=== PATIENT | female | born 1980 | race Caucasian/White ===

== ENCOUNTER 2019-01-20 09:06 | Emergency (ER) | payer OTHER ==
[~2019-01-20] VITALS: Ht 167.6 cm; Wt 79.4 kg
--- OUTSIDE RECORDS SUMMARY | 2019-01-20 09:12 | XMS REPORT ---
Author Author Migration, Doctor Organization [facility] Address Unknown Phone Unavailable Care Team Providers Care Water Resource Agent Name Role Phone Migration, Doctor Unavailable Unavailable PROBLEMS Type Condition ICD9-CM Code CII14-SK Code Onset Dates Condition Status SNOMED Code Problem Generalized anxiety disorder F41.1 14 May, 2012 Active 16161338 Problem Smoking trying to quit Z72.0 14 Oct, 2016 Active 295508909 Problem Hemangioma of liver D18.03 Feb, Active 66761930 Problem Lumbago with sciatica, right side M54.41 Active 630611488929554 Problem Other chronic pain G89.29 Active 35294257 Problem Left carpal tunnel syndrome G56.02 Feb, Active 04202420 Problem Essential hypertension I10 Active 87186513 Problem GERD (gastroesophageal reflux disease) K21.9 Active 436310719 Problem Lumbago with sciatica, left side M54.42 Active 362251701 ALLERGIES No Information ENCOUNTERS Encounter Location Date Diagnosis [address] [place] [address] November, Acute bacterial conjunctivitis of left eye H10.32 [address] [place] [address] November, Other chronic pain G89.29 [address] [place] [address] Oct, Sore throat J02.9 ; Exposure to strep throat Z20.818 and Encounter for immunization Z23 [facility] [address] [address] Oct, [facility] [address] [place] [address] Sep, Lumbago with sciatica, left side M54.42 [facility] [address] [place] [address] Sep, Vaso vagal episode R55 [facility] [address] [address] Sep, [facility] [address] [place] [address] Aug, [facility] [address] [place] [address] Aug, Lumbago with sciatica, left side M54.42 ; Lumbago with sciatica, right side M54.41 and Essential hypertension I10 [facility] [address] [place] [address] Aug, [facility] [address] [place] [address] Aug, Lumbago with sciatica, left side M54.42 and Lumbago with sciatica, right side M54.41 [facility] [address] [address] Jul, [facility] [address] [place] [address] Jul, Essential hypertension I10 [facility] [address] [address] Jul, [facility] [id number] [place] [address] Jul, Essential hypertension I10 [facility] [address] [place] [address] Jul, Liver hemangioma D18.03 ; Other chronic pain G89.29 ; Lumbago with sciatica, right side M54.41 ; Lumbago with sciatica, left side M54.42 and Essential hypertension I10 [facility] [address] [address] Jun, [facility] [id number] [place] [address] Jun, [facility] [address] [address] May, [facility] [address] [place] [address] November, [facility] [address] [address] Oct, Essential hypertension I10 [facility] [address] [address] 10 Jul, 2016 Acute cystitis without hematuria N30.00 [facility] [address] [address] 14 Oct, 2014 [facility] [address] [address] Oct, [facility] [id number] [place] [address] Mar, [facility] [id number] [place] [address] Feb, [facility] [id number] [place] [address] Feb, [facility] [address] [address] Feb, [facility] [id number] [place] [address] Feb, [facility] [address] [address] Feb, [facility] [address] [address] Jan, [facility] [address] [address] Dec, IMMUNIZATIONS No Known Immunizations SOCIAL HISTORY Never Assessed REASON FOR VISIT [facility] PLAN OF CARE VITAL SIGNS MEDICATIONS No Known Medications RESULTS No Results PROCEDURES No Known procedures INSTRUCTIONS MEDICATIONS ADMINISTERED No Known Medications MEDICAL (GENERAL) HISTORY Type Description Date Medical History Anxiety Medical History GERD (gastroesophageal reflux disease) Medical History Back pain Medical History Hemangioma Surgical History hysterectomy 2008 Surgical History gallbladder removal 2012 Surgical History tubal ligation Hospitalization History Surgery(s)/Childbirth(s) only
--- OUTSIDE RECORDS SUMMARY | 2019-01-20 09:13 | XMS REPORT ---
Author Author Migration, Doctor Organization [facility] Address Unknown Phone Unavailable Care Team Providers Care Compliance Quality Performance Analyst Name Role Phone Migration, Doctor Unavailable Unavailable PROBLEMS Type Condition ICD9-CM Code CVR90-TR Code Onset Dates Condition Status SNOMED Code Problem Generalized anxiety disorder F41.1 14 May, 2012 Active 91694415 Problem Smoking trying to quit Z72.0 14 Oct, 2016 Active 941921658 Problem Hemangioma of liver D18.03 Feb, Active 29938615 Problem Lumbago with sciatica, right side M54.41 Active 673021929042091 Problem Other chronic pain G89.29 Active 70081381 Problem Left carpal tunnel syndrome G56.02 Feb, Active 14502814 Problem Essential hypertension I10 Active 36404567 Problem GERD (gastroesophageal reflux disease) K21.9 Active 901229341 Problem Lumbago with sciatica, left side M54.42 Active 504663233 ALLERGIES No Information ENCOUNTERS Encounter Location Date Diagnosis [address] [place] [address] Oct, Sore throat J02.9 ; Exposure to strep throat Z20.818 and Encounter for immunization Z23 [facility] [id number] [place] [address] Oct, [facility] [address] [place] [address] Sep, Lumbago with sciatica, left side M54.42 [facility] [address] [place] [address] Sep, Vaso vagal episode R55 [facility] [address] [address] Sep, [facility] [address] [place] [address] Aug, [facility] [address] [place] [address] Aug, Lumbago with sciatica, left side M54.42 ; Lumbago with sciatica, right side M54.41 and Essential hypertension I10 [facility] [id number] [place] [address] Aug, [facility] [address] [place] [address] Aug, Lumbago with sciatica, left side M54.42 and Lumbago with sciatica, right side M54.41 [facility] [id number] [place] [address] Jul, [facility] [address] [place] [address] Jul, Essential hypertension I10 [facility] [id number] [place] [address] Jul, [facility] [id number] [place] [address] Jul, Essential hypertension I10 [facility] [address] [place] [address] Jul, Liver hemangioma D18.03 ; Other chronic pain G89.29 ; Lumbago with sciatica, right side M54.41 ; Lumbago with sciatica, left side M54.42 and Essential hypertension I10 [facility] [address], [place] [address] Jun, [facility] [id number] [place] [address] Jun, [facility] [id number] [place] [address] May, [facility] [id number] [place] [address] November, [facility] [id number] [place] [address] Oct, Essential hypertension I10 [facility] [id number] [place] [address] 10 Jul, 2016 Acute cystitis without hematuria N30.00 [facility] [address], [place] [address] 14 Oct, 2014 [facility] [address], [place] [address] 13 Oct, 2014 [facility] [address], [place] [address] 04 Mar, 2012 [facility] [address] [place] [address] Feb, [facility] [address] [place] [address] Feb, [facility] [address] [place] [address] Feb, [facility] [address] [place] [address] Feb, [facility] [address], [place] [address] Feb, [facility] [address], [place] [address] Jan, [facility] [address], [place] [address] Dec, IMMUNIZATIONS No Known Immunizations SOCIAL HISTORY Never Assessed REASON FOR VISIT [facility] PLAN OF CARE VITAL SIGNS MEDICATIONS No [...]
--- OUTSIDE RECORDS SUMMARY | 2019-01-20 09:13 | XMS REPORT ---
Author Author Migration, Doctor Organization [facility] Address Unknown Phone Unavailable Care Team Providers Care Writer Technical Publications Name Role Phone Migration, Doctor Unavailable Unavailable PROBLEMS Type Condition ICD9-CM Code DQL91-GG Code Onset Dates Condition Status SNOMED Code Problem Generalized anxiety disorder F41.1 14 May, 2012 Active 45730489 Problem Smoking trying to quit Z72.0 14 Oct, 2016 Active 501064663 Problem Hemangioma of liver D18.03 Feb, Active 92232323 Problem Lumbago with sciatica, right side M54.41 Active 105932068679920 Problem Other chronic pain G89.29 Active 49258689 Problem Left carpal tunnel syndrome G56.02 Feb, Active 17807760 Problem Essential hypertension I10 Active 45145688 Problem GERD (gastroesophageal reflux disease) K21.9 Active 302369769 Problem Lumbago with sciatica, left side M54.42 Active 047664466 ALLERGIES No Information ENCOUNTERS Encounter Location Date Diagnosis [facility] [id number] [place] [address] Oct, [facility] [address] [place] [address] Sep, Lumbago with sciatica, left side M54.42 [facility] [address] [place] [address] Sep, Vaso vagal episode R55 [facility] [id number] [place] [address] Sep, [facility] [address] [place] [address] Aug, [facility] [address] [place] [address] Aug, Lumbago with sciatica, left side M54.42 ; Lumbago with sciatica, right side M54.41 and Essential hypertension I10 [facility] [id number] [place] [address] Aug, [facility] [address] [place] [address] Aug, Lumbago with sciatica, left side M54.42 and Lumbago with sciatica, right side M54.41 [facility] [address] [place] [address] Jul, [facility] [address] [place] [address] Jul, Essential hypertension I10 [facility] [id number] [place] [address] Jul, [facility] [id number] [place] [address] Jul, Essential hypertension I10 [facility] [address] [place] [address] Jul, Liver hemangioma D18.03 ; Other chronic pain G89.29 ; Lumbago with sciatica, right side M54.41 ; Lumbago with sciatica, left side M54.42 and Essential hypertension I10 [facility] [id number] [place] [address] Jun, [facility] [id number] [place] [address] Jun, [facility] [id number] [place] [address] May, [facility] [id number] [place] [address] November, [facility] [id number] [place] [address] 27 Oct, 2017 Essential hypertension I10 [facility] [id number] [place] [address] 10 Jul, 2016 Acute cystitis without hematuria N30.00 [facility] [id number] [place] [address] Oct, [facility] [id number], [place] [address] Oct, [facility] [address], [place] [address] Mar, [facility] [id number], [place] [address] Feb, [facility] [address], [place] [address] Feb, [facility] [address], [place] [address] Feb, [facility] [address] [place] [address] Feb, [facility] [address], [place] [address] Feb, [facility] [address], [place] [address] Jan, [facility] [id number], [place] [address] Dec, IMMUNIZATIONS No Known Immunizations SOCIAL HISTORY Never Assessed REASON FOR VISIT [facility] PLAN OF CARE VITAL SIGNS MEDICATIONS Medication Instructions Dosage Frequency Start Date End Date Duration Status Ranitidine HCl 150 mg 1 tablet by Oral route 2 times per day Dec, Active RESULTS No Results PROCEDURES No Known procedures INSTRUCTIONS MEDICATIONS ADMINISTERED No Known Medications MEDICAL (GENERAL) HISTORY Type Description Date Medical History Anxiety Medical History GERD (gastroesophageal reflux disease) Medical History Back pain Medical History Hemangioma Surgical History hysterectomy 2009 Surgical History gallbladder removal 2012 Surgical History tubal ligation Hospitalization History Surgery(s)/Childbirth(s) only
--- OUTSIDE RECORDS SUMMARY | 2019-01-20 09:13 | XMS REPORT | Continuity of Care Document ---
Author Organization Unknown Address Unknown Allergies There is no data. Medications There is no data. Problems There is no data. Procedures There is no data. Results There is no data. Encounters ACCT No. Visit Date/Time Discharge Status Pt. Type Provider Facility Loc./Unit Complaint [id number] 12/04/2018 09:40:00 12/04/2018 23:59:59 CLS Outpatient JORDEN ARIAS
--- OUTSIDE RECORDS SUMMARY | 2019-01-20 09:13 | XMS REPORT ---
Author Author JORDEN ARIAS [facility] Address [address] [place] [address] Care Team Providers Care Meat Butcher Name Role Phone JORDEN ARIAS Unavailable PROBLEMS Type Condition ICD9-CM Code TFS64-FC Code Onset Dates Condition Status SNOMED Code Problem Generalized anxiety disorder F41.1 14 May, 2012 Active 01511052 Problem Smoking trying to quit Z72.0 Oct, Active 196596335 Problem Hemangioma of liver D18.03 Feb, Active 32273198 Problem Lumbago with sciatica, right side M54.41 Active 182583658836077 Problem Other chronic pain G89.29 Active 72975889 Problem Left carpal tunnel syndrome G56.02 Feb, Active 78376615 Problem Essential hypertension I10 Active 25295731 Problem GERD (gastroesophageal reflux disease) K21.9 Active 470439664 Problem Lumbago with sciatica, left side M54.42 Active 919678187 ALLERGIES No Information ENCOUNTERS Encounter Location Date Diagnosis [address] [place] [address] November, Acute bacterial conjunctivitis of left eye H10.32 [address] [place] [address] November, Other chronic pain G89.29 [address] [place] [address] Oct, Sore throat J02.9 ; Exposure to strep throat Z20.818 and Encounter for immunization Z23 [facility] [address] [facility] [id number] [address] Oct, [address] [place] [address] Sep, Lumbago with sciatica, left side M54.42 [address] [place] [address] Sep, Vaso vagal episode R55 [facility] [id number] [place] [address] Sep, [facility] [address] [place] [address] Aug, [facility] [address] [place] [address] Aug, Lumbago with sciatica, left side M54.42 ; Lumbago with sciatica, right side M54.41 and Essential hypertension I10 [facility] [id number] [place] [address] Aug, [facility] [address] [place] [address] Aug, Lumbago with sciatica, left side M54.42 and Lumbago with sciatica, right side M54.41 [facility] [id number] [place] [address] Jul, [facility] [address] [place] [address] Jul, Essential hypertension I10 [facility] [id number] [place] [address] Jul, [facility] [id number] [place] [address] Jul, Essential hypertension I10 [facility] [address] [place] [address] Jul, Liver hemangioma D18.03 ; Other chronic pain G89.29 ; Lumbago with sciatica, right side M54.41 ; Lumbago with sciatica, left side M54.42 and Essential hypertension I10 [facility] [id number] [place] [address] Jun, [facility] [id number] [place] [address] Jun, [facility] [id number] [place] [address] May, [facility] [address], [place] [address] November, [facility] [address], [place] [address] Oct, Essential hypertension I10 [facility] [address], [place] [address] Jul, Acute cystitis without hematuria N30.00 [facility] [address], [place] [address] 14 Oct, 2014 [facility] [address] [place] [address] Oct, [facility] [id number] [place] [address] Mar, [facility] [address] [place] [address] Feb, [facility] [address], [place] [address] Feb, [facility] [id number] [place] [address] Feb, [facility] [address], [place] [address] Feb, [facility] [address], [place] [address] Feb, [facility] [address], [place] [address] Jan, [facility] [address], [place] [address] Dec, IMMUNIZATIONS No Known Immunizations SOCIAL HISTORY Never Assessed REASON FOR VISIT PLAN OF CARE VITAL SIGNS MEDICATIONS Medication Instructions Dosage Frequency Start Date End Date Duration Status Tramadol HCl 50 MG Orally every 8 hours as needed for pain must last one month 1-2 tablets Active RESULTS No Results PROCEDURES No Known procedures INSTRUCTIONS MEDICATIONS ADMINISTERED No Known Medications MEDICAL (GENERAL) HISTORY Type Description Date Medical History Anxiety Medical History GERD (gastroesophageal reflux disease) Medical History Back pain Medical History Hemangioma Surgical History hysterectomy 2008 Surgical History gallbladder removal 2012 Surgical History tubal ligation Hospitalization History Surgery(s)/Childbirth(s) only
--- OUTSIDE RECORDS SUMMARY | 2019-01-20 09:13 | XMS REPORT ---
Author Author HERBER RAMIREZ Organization [facility] Address [address] [place] [address] Phone Unavailable Care Team Providers Care Underground Truck Operator Name Role Phone HERBER RAMIREZ Unavailable Unavailable PROBLEMS Type Condition ICD9-CM Code [id number] Code Onset Dates Condition Status SNOMED Code Problem Essential hypertension I10 Active 30551809 Problem Unspecified viral infection, in conditions classified elsewhere and of unspecified site 079.99 Active 90721723 Problem Acute gastritis without mention of hemorrhage 535.00 Active 97430623 Problem Abdominal pain, right upper quadrant 789.01 Active [id number] ALLERGIES No Known Allergies ENCOUNTERS Encounter Location Date Diagnosis [facility] [id number] [place] [phone] Oct, Essential hypertension I10 [facility] [id number] [place] [phone] 10 Jul, 2016 Acute cystitis without hematuria N30.00 [facility] [id number] [place] [phone] 14 Oct, 2014 [facility] [id number] [place] [phone] Oct, [facility] [id number] [place] [phone] Mar, [facility] [id number] [place] [phone] Feb, [facility] [id number] [place] [phone] Feb, [facility] [id number] [place] [phone] Feb, [facility] [id number] [place] [phone] Feb, [facility] [address] [facility] [id number] [place] [address] Feb, [facility] [address] [facility] [id number] [address] Jan, [facility] [address] [facility] [id number] [place] [address] Dec, IMMUNIZATIONS No Known Immunizations SOCIAL HISTORY Never Assessed REASON FOR VISIT headache/back pain Pt c/o lower back pain and headache since yesterday SERA García PLAN OF CARE Activity Details Follow Up prn Reason: VITAL SIGNS Height 66 in 2017-11-23 Weight 182.4 lbs 2017-11-23 Temperature 98.6 degrees Fahrenheit 2017-11-23 Heart Rate 88 bpm 2017-11-23 Respiratory Rate 18 2017-11-23 BMI 29.44 kg/m2 2017-11-23 Blood pressure systolic 136 mmHg 2017-11-23 Blood pressure diastolic 82 mmHg 2017-11-23 MEDICATIONS Medication Instructions Dosage Frequency Start Date End Date Duration Status Ranitidine HCl 150 mg 1 tablet by Oral route 2 times per day Dec, Not-Taking Prilosec OTC 20 MG Orally Once a day 2 tablets 24h Active Medrol (Micheal) Active RESULTS No Results PROCEDURES No Known procedures INSTRUCTIONS MEDICATIONS ADMINISTERED No Known Medications MEDICAL (GENERAL) HISTORY Type Description Date Surgical History hysterectomy 2008 Surgical History gallbladder removal 2012
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
[2019-01-20] MEDS ORDERED: ONDANSETRON 4 MG/2 ML (SDV) Z0FRAN IVP ONE (09:30)
[2019-01-20] MEDS ORDERED: NITROGLYCERIN 0.4 MG SL TABS BTL 25'S SL PRN (09:30)
[2019-01-20] MEDS ORDERED: ASPIRIN 81 MG CHEW (CHILDREN'S ASA) PO ONE (09:30)
[2019-01-20 09:33] LABS: BASOPHILS % (AUTO) 1 % (0-10); EOSINOPHILS # (AUTO) 0.1 10^3/uL (0.0-0.3); EOSINOPHILS % (AUTO) 2 % (0-10); HEMATOCRIT 42 % (35-52); HEMOGLOBIN 13.6 G/DL (11.5-16.0); LYMPHOCYTES # (AUTO) 2.2 X 10^3 (1.0-4.0); LYMPHOCYTES % (AUTO) 25 % (12-44); MEAN CORPUSCULAR HEMOGLOBIN 31 PG (25-34); MEAN CORPUSCULAR HGB CONC 33 G/DL (32-36); MEAN CORPUSCULAR VOLUME 94 FL (80-99); MEAN PLATELET VOLUME 10.3 FL (7.4-10.4); MONOCYTES # (AUTO) 0.5 X 10^3 (0.0-1.0); MONOCYTES % (AUTO) 6 % (0-12); NEUTROPHILS # (AUTO) 5.9 X 10^3 (1.8-7.8); NEUTROPHILS % (AUTO) 68 % (42-75); PLATELET COUNT 333 10^3/uL (130-400); RED CELL DISTRIBUTION WIDTH 14.5 % (10.0-14.5); WHITE BLOOD COUNT 8.8 10^3/uL (4.3-11.0)
[2019-01-20] MEDS ORDERED: LORazepam INJ 2 MG/ML (ATIVAN) VIAL IVP ONE (09:45)
[2019-01-20 09:51] LABS: INR 0.8 (0.8-1.4); PROTHROMBIN TIME PATIENT 11.7 SEC (12.2-14.7)
[2019-01-20 09:52] LABS: ALANINE AMINOTRANSFERASE 10 U/L (0-55); ALBUMIN 4.2 GM/DL (3.2-4.5); ALKALINE PHOSPHATASE 74 U/L (40-136); BILIRUBIN,TOTAL 0.2 MG/DL (0.1-1.0); BUN/CREATININE RATIO 14; CALCIUM 9.3 MG/DL (8.5-10.1); CARBON DIOXIDE 20 MMOL/L (21-32); CHLORIDE 108 MMOL/L (98-107); CREATININE SERUM 0.71 MG/DL (0.60-1.30); GFR ESTIMATED > 60; GLUCOSE 103 MG/DL (70-105); LIPASE 33 U/L (8-78); POTASSIUM 4.1 MMOL/L (3.6-5.0); SODIUM 139 MMOL/L (135-145); TOTAL PROTEIN 6.9 GM/DL (6.4-8.2)
--- NOTE | 2019-01-20 09:52 | Diagnostic Imaging Report ---
INDICATION: Chest pain. Time of exam 9:38 a.m. COMPARISON: No prior studies are available for comparison. FINDINGS: Heart size is normal. The lungs are clear. No infiltrates are seen. There is no effusion or pneumothorax. Healed left sixth posterior rib fracture is noted. IMPRESSION: No acute abnormality is detected. Dictated by: Dictated on workstation # [id number]
[2019-01-20] MEDS ORDERED: KETOROLAC 30 MG/ML VIAL IVP ONE (11:00)
[2019-01-20 11:35] LABS: BILIRUBIN,URINE NEGATIVE (NEGATIVE); CLARITY,URINE CLEAR; COLOR,URINE YELLOW; GLUCOSE, URINE (UA) NEGATIVE (NEGATIVE); KETONES,URINE NEGATIVE (NEGATIVE); LEUKOCYTE ESTERASE ,URINE 1+ (NEGATIVE); NITRITE,URINE POSITIVE (NEGATIVE); PH,URINE 6 (5-9); PROTEIN,URINE NEGATIVE (NEGATIVE); UROBILINOGEN,URINE NORMAL (NORMAL)
[2019-01-20 11:36] LABS: BACTERIA,URINE MODERATE /HPF
[2019-01-20] MEDS ORDERED: NAPR-1071 PO (11:54)
[2019-01-20 11:59] VITALS: BP 111/89
== END 2019-01-20 11:59 | disposition home or self-care (01) ==
LOC: EDUNIT# 09:06 → ER 09:08
DX: R07.89 Other chest pain (principal); F41.0 Panic disorder [episodic paroxysmal anxiety]; E78.00 Pure hypercholesterolemia, unspecified; Z88.1 Allergy status to other antibiotic agents
CPT/HCPCS: 36415; 71045; 80053; 81000; 83690; 83735; 83874; 84484; 85025; 85610; 85730; 87077; 87088

== ENCOUNTER → 2019-08-04 | Outpatient (CLI) | payer OTHER ==
[~2019-08-04] MED LIST: NAPR-1071 PO
== END | disposition home or self-care (01) ==
LOC: PREOP 05:38
PROVIDERS: ATTEND Surgery
DX: Z01.818 Encounter for other preprocedural examination (principal)

== ENCOUNTER 2021-02-10 11:28 | Emergency (ER) | payer BC ==
[~2021-02-10] VITALS: Ht 170 cm; Wt 76.0 kg
[2021-02-10 12:21] VITALS: BP_SYST 102; BP_SYST 105; BP_SYST 107; BP_DIAS 54; BP_DIAS 64; BP_DIAS 68
--- NOTE | 2021-02-10 12:34 | ED Cardiac General ---
History of Present Illness General Chief Complaint: Cardiac/General Problems Stated Complaint: HIGH BP Nursing Triage Note: ARRIVED VIA AMB TO ROOM 10 WITHOUT DIFFICULTY. STATES AT TIME HER BP IS HIGH AND AT TIMES IT IS LOW. STATES TODAY SHE FEELS DIZZY AND IS SEEING SPOTS OCCASIONALLY. Source: patient Exam Limitations: no limitations History of Present Illness Date Seen by Provider: Feb 10, 2021 Time Seen by Provider: 12:34 Initial Comments To ER with reports of blood pressure alternating high and low which has been ongoing for many years but only today did she noticed symptoms with it including palpitations and lightheadedness. 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: No ASA po QUARRY EQUIPMENT OPERATOR: No Associated Systoms: Weakness Allergies and Home Medications Allergies Coded Allergies: amoxicillin (Verified Allergy, Unknown, hives, 01/20/19) Home Medications Pantoprazole Sodium 40 Mg Tablet.dr, 40 MG PO DAILY Prescribed by: GONZALO NORWOOD on 08/08/19831 Sucralfate 1 Gm Tablet, 1 GM PO QID Prescribed by: GONZALO NORWOOD on 08/08/19831 Patient Home Medication List Home Medication List Reviewed: Yes Review of Systems Review of Systems Constitutional: see HPI EENTM: No Symptoms Reported Respiratory: No Symptoms Reported Cardiovascular: See HPI; Denies Chest Pain; Irregular Heart Rate, Lig htheadedness, Palpitations Gastrointestinal: No Symptoms Reported Genitourinary: No Symptoms Reported Musculoskeletal: no symptoms reported Skin: no symptoms reported Endocrine: No Symptoms Reported Hematologic/Lymphatic: No Symptoms Reported Past Emxmznq-Usydwp-Uvpzbu Hx Patient Social History Tobacco type used: Cigarettes Smoking Status: Current Everyday Smoker Substance use?: No Alcohol Use?: No Immunizations Up To Date Tetanus Booster (TDap): Unknown Second COVID19 Vaccination Jorge: UNKNOWN DATE Seasonal Allergies Seasonal Allergies: No Past Medical History Surgeries: Yes Gallbladder, Hysterectomy, Tubal Ligation Respiratory: No Currently Using CPAP: No Currently Using BIPAP: No Cardiac: Yes High Cholesterol, Hypertension Neurological: No Female Reproductive Disorders: Denies 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 oz. 79.067778nf; 26.00 BMI Method:Stated General Appearance: No Apparent Distress, WD/WN, Other (Well-appearing alert and oriented no distress) HEENT: PERRL/EOMI, TMs Normal Respiratory: Lungs Clear, Normal Breath Sounds, No Accessory Muscle Use, No Respiratory Distress Cardiovascular: Regular Rate, Rhythm, Normal Peripheral Pulses Gastrointestinal: No Pulsatile Mass, Non Tender, Soft Neurologic/Psychiatric: Alert, Oriented x3 Skin: Normal Color, Warm/Dry Progress/Results/Core Measures Results/Orders Lab Results Laboratory Tests Test 02/10/21 12:25 Range/Units White Blood Count 13.8 H 4.3-11.0 10^3/uL Red Blood Count 4.16 3.80-5.11 10^6/uL Hemoglobin 10.8 L 11.5-16.0 g/dL Hematocrit 35 35-52 % Mean Corpuscular Volume 85 80-99 fL Mean Corpuscular Hemoglobin 26 25-34 pg Mean Corpuscular Hemoglobin Concent 31 L 32-36 g/dL Red Cell Distribution Width 21.0 H 10.0-14.5 % Platelet Count 374 130-400 10^3/uL Mean Platelet Volume 10.3 9.0-12.2 fL Immature Granulocyte % (Auto) 0 % Neutrophils (%) (Auto) 82 H 42-75 % Lymphocytes (%) (Auto) 13 12-44 % Monocytes (%) (Auto) 3 0-12 % Eosinophils (%) (Auto) 1 0-10 % Basophils (%) (Auto) 1 0-10 % Neutrophils # (Auto) 11.3 H 1.8-7.8 10^3/uL Lymphocytes # (Auto) 1.8 1.0-4.0 10^3/uL Monocytes # (Auto) 0.5 0.0-1.0 10^3/uL Eosinophils # (Auto) 0.1 0.0-0.3 10^3/uL Basophils # (Auto) 0.1 0.0-0.1 10^3/uL Immature Granulocyte # (Auto) 0.1 0.0-0.1 10^3/uL Prothrombin Time 12.4 12.2-14.7 SEC INR Comment 0.9 0.8-1.4 Activated Partial Thromboplast Time 27 24-35 SEC Sodium Level 141 135-145 MMOL/L Potassium Level 3.8 3.6-5.0 MMOL/L Chloride Level 111 H 98-107 MMOL/L Carbon Dioxide Level 21 21-32 MMOL/L Anion Gap 9 5-14 MMOL/L Blood Urea Nitrogen 10 7-18 MG/DL Creatinine 0.72 0.60-1.30 MG/DL Estimat Glomerular Filtration Rate > 60 BUN/Creatinine Ratio 14 Glucose Level 127 H 70-105 MG/DL Calcium Level 8.5 8.5-10.1 MG/DL Corrected Calcium 8.7 8.5-10.1 MG/DL Magnesium Level 2.0 1.6-2.4 MG/DL Total Bilirubin 0.1 0.1-1.0 MG/DL Aspartate Amino Transf (AST/SGOT) 13 5-34 U/L Alanine Aminotransferase (ALT/SGPT) 12 0-55 U/L Alkaline Phosphatase 81 40-136 U/L Myoglobin 22.7 10.0-92.0 NG/ML Troponin I < 0.028 <0.028 NG/ML Total Protein 6.2 L 6.4-8.2 GM/DL Albumin 3.7 3.2-4.5 GM/DL Thyroid Stimulating Hormone (TSH) 0.66 0.35-4.94 UIU/ML Free Thyroxine 0.67 L 0.70-1.48 NG/DL My Orders Orders - LAKISHA COSTA APRN Cbc With Automated Diff (02/10/21 12:29) Magnesium (02/10/21 12:29) Chest 1 View, Ap/Pa Only (02/10/21 12:29) Ekg Tracing (02/10/21 12:29) Comprehensive Metabolic Panel (02/10/21 12:29) Myoglobin Serum (02/10/21 12:29) Protime With Inr (02/10/21 12:29) Partial Thromboplastin Time (02/10/21 12:29) O2 (7/15/21 12:29) Monitor-Rhythm Ecg Trace Only (02/10/21 12:29) Lipid Panel (02/11/21 06:00) Ed Iv/Invasive Line Start (02/10/21 12:29) Troponin I (02/10/21 12:29) Thyroid Stimulating Hormone (02/10/21 12:29) Free T4 (Free Thyroxine) (02/10/21 12:29) Vital Signs/I&O 02/10/21 02/10/21 11:55 12:21 Temp 36.0 Pulse 85 84 84 81 Resp 16 B/P (MAP) 104/56 (72) 102/54 (70) 105/68 (80) 107/64 (78) Pulse Ox 98 O2 Delivery Room Air Blood Pressure Mean: 70 Departure Communication (Admissions) EKG done at 1252 shows normal sinus rhythm with no ST segment changes no ectopy normal intervals. I have set up for her to wear a 48-hour Holter monitor with results to be faxed to Ange Arias. Impression Primary Impression: Palpitations Disposition: 01 HOME, SELF-CARE Condition: Stable Departure-Patient Inst. Referrals: [facility] (PCP) Primary Care Physician JORDEN ARIAS (Family) Primary Care Physician Patient Instructions: Palpitations LAKISHA CSOTA APRN Feb 10, 2021 12:34
[2021-02-10 12:47] LABS: BASOPHILS # (AUTO) 0.1 10^3/uL (0.0-0.1); BASOPHILS % (AUTO) 1 % (0-10); EOSINOPHILS # (AUTO) 0.1 10^3/uL (0.0-0.3); EOSINOPHILS % (AUTO) 1 % (0-10); HEMATOCRIT 35 % (35-52); HEMOGLOBIN 10.8 g/dL (11.5-16.0); LYMPHOCYTES # (AUTO) 1.8 10^3/uL (1.0-4.0); LYMPHOCYTES % (AUTO) 13 % (12-44); MEAN CORPUSCULAR HEMOGLOBIN 26 pg (25-34); MEAN CORPUSCULAR HGB CONC 31 g/dL (32-36); MEAN CORPUSCULAR VOLUME 85 fL (80-99); MEAN PLATELET VOLUME 10.3 fL (9.0-12.2); MONOCYTES # (AUTO) 0.5 10^3/uL (0.0-1.0); MONOCYTES % (AUTO) 3 % (0-12); NEUTROPHILS # (AUTO) 11.3 10^3/uL (1.8-7.8); NEUTROPHILS % (AUTO) 82 % (42-75); PLATELET COUNT 374 10^3/uL (130-400); WHITE BLOOD COUNT 13.8 10^3/uL (4.3-11.0)
[2021-02-10 12:50] LABS: INR 0.9 (0.8-1.4); PROTHROMBIN TIME PATIENT 12.4 SEC (12.2-14.7)
[2021-02-10 12:51] LABS: ALBUMIN 3.7 GM/DL (3.2-4.5)
[2021-02-10 12:52] LABS: CHLORIDE 111 MMOL/L (98-107); POTASSIUM 3.8 MMOL/L (3.6-5.0); SODIUM 141 MMOL/L (135-145)
[2021-02-10 12:53] LABS: CALCIUM 8.5 MG/DL (8.5-10.1)
[2021-02-10 12:54] LABS: GLUCOSE 127 MG/DL (70-105); TOTAL PROTEIN 6.2 GM/DL (6.4-8.2)
[2021-02-10 12:55] LABS: CARBON DIOXIDE 21 MMOL/L (21-32)
[2021-02-10 12:56] LABS: BILIRUBIN,TOTAL 0.1 MG/DL (0.1-1.0)
[2021-02-10 12:57] LABS: ALKALINE PHOSPHATASE 81 U/L (40-136)
[2021-02-10 12:58] LABS: CREATININE SERUM 0.72 MG/DL (0.60-1.30); GFR ESTIMATED > 60
[2021-02-10 12:59] LABS: BUN/CREATININE RATIO 14
[2021-02-10 13:01] LABS: ALANINE AMINOTRANSFERASE 12 U/L (0-55)
--- NOTE | 2021-02-10 13:11 | Diagnostic Imaging Report ---
EXAM: CHEST 1 VIEW, AP/PA ONLY INDICATION: Chest pain. COMPARISON: Chest radiograph from 01/20/2019. FINDINGS: Normal heart size and central pulmonary vascularity. No focal pulmonary opacity. No pleural effusion or pneumothorax. Chronic left rib fracture is stable. No acute osseous findings. IMPRESSION: No acute cardiopulmonary findings. Dictated by: Dictated on workstation # [id number]
[2021-02-10 13:22] LABS: FREE T4 (FREE THYROXINE) 0.67 NG/DL (0.70-1.48)
[2021-02-10 13:59] VITALS: BP 110/67
== END 2021-02-10 13:59 | disposition home or self-care (01) ==
LOC: EDUNIT# 11:28 → ER 11:29
DX: R00.2 Palpitations (principal); I10 Essential (primary) hypertension; F17.210 Nicotine dependence, cigarettes, uncomplicated
CPT/HCPCS: 36415; 71045; 80053; 83735; 83874; 84439; 84443; 84484; 85025; 85610; 85730; 93005; 93041

== ENCOUNTER → 2021-02-10 | Outpatient (CLI) | payer BC ==
[~2021-02-10] MED LIST changes: +PANT40TA2 PO; +SUCR1TAB36 PO
== END ==
LOC: CARD 15:00
PROVIDERS: ATTEND Nurse Practitioner Family
DX: R00.2 Palpitations (principal); R42 Dizziness and giddiness
CPT/HCPCS: 93225; 93226

== ENCOUNTER 2022-10-08 16:06 | Emergency (ER) | payer BC ==
[~2022-10-08] VITALS: Ht 167 cm; Wt 62.5 kg
--- NOTE | 2022-10-08 16:39 | ED Upper Extremity ---
General Chief Complaint: Upper Extremity Stated Complaint: LEFT UPPER EXTREMITY Nursing Triage Note: pt was bucked off her horse about 2hours ago and landed on left shoulder. pt has pain and obvious deformity to left shoulder. decreased ROM. denies any other complaints Source: patient Exam Limitations: no limitations History of Present Illness Date Seen by Provider: Oct 08, 2022 Time Seen by Provider: 16:29 Initial Comments 42-year-old female presents to the ED with reports of falling off her horse at 2:30 this afternoon. States she landed on her left shoulder, now complaining of left shoulder pain. Denies pain in her elbow, wrist, hand. States she has difficulty extending the elbow due to the shoulder pain, but denies pain in the elbow. Sensation intact distally, cap refill less than 3 seconds. Allergies and Home Medications Allergies Coded Allergies: amoxicillin (Verified Allergy, Unknown, hives, 01/20/19) Patient Home Medication List Home Medication List Reviewed: Yes Oxycodone HCl/Acetaminophen (Percocet 5-325 mg Tablet) 5 Mg-325 Mg Tablet, 1 TAB PO Q4H PRN for PAIN-MODERATE Prescribed by: Hoa Quintero on 10/08/22 1725 Pantoprazole Sodium (Protonix) 40 Mg Tablet.dr, 40 MG PO DAILY Prescribed by: GONZALO NORWOOD on 08/08/19 0832 Sucralfate (Carafate) 1 Gm Tablet, 1 GM PO QID Prescribed by: GONZALO NORWOOD on 08/08/19 0832 Review of Systems Constitutional: no symptoms reported Respiratory: no symptoms reported Cardiovascular: no symptoms reported Musculoskeletal: joint pain Past Esqzkxz-Ztrrvb-Cctzys Hx Patient Social History Tobacco Use?: Yes Tobacco type used: Cigarettes Smoking Status: Current Everyday Smoker Substance use?: No Alcohol Use?: No Immunizations Up To Date Tetanus Booster (TDap): Unknown Influenza Vaccine Up-to-Date: No; Not Current Seasonal Allergies Seasonal Allergies: No Past Medical History Surgeries: Yes Gallbladder, Hysterectomy, Tubal Ligation Respiratory: No Currently Using CPAP: No Currently Using BIPAP: No Cardiac: Yes High Cholesterol, Hypertension Neurological: No Female Reproductive Disorders: Denies [employer] History: Hysterectomy, Tubal Ligation Sexually Transmitted Disease: No HIV/AIDS: No Genitourinary: No Gastrointestinal: No (hemangioma on liver) Chronic Back Pain Endocrine: No HEENT: No Cancer: No Psychosocial: Yes Anxiety Integumentary: No Blood Disorders: No Adverse Reaction/Blood Tranf: No Physical Exam Vital Signs Vital Signs - First Documented 10/08/22 10/08/22 16:20 17:45 Temp 36.5 Pulse 94 Resp 18 B/P (MAP) 130/83 (99) Pulse Ox 100 O2 Delivery Room Air Capillary Refill : Less Than 3 Seconds Height, Weight, BMI Height: 5'6.00" Weight: 175lbs. oz. 79.637201vh; 22.00 BMI Method:Stated General Appearance: WD/WN, mild distress Neck: supple, normal inspection Cardiovascular: regular rate, rhythm, no edema, no gallop, no JVD, no murmur Respiratory: lungs clear, normal breath sounds, no respiratory distress, no accessory muscle use Shoulder: deformity, limited ROM, pain, soft tissue tenderness Elbow/Forearm: normal inspection, non-tender, no evidence of injury, Left Wrist: Yes normal inspection, Yes non-tender, Yes no evidence of injury, Yes normal ROM Hand: normal inspection, non-tender, no evidence of injury, normal ROM, Left Neurologic/Psychiatric: alert, normal mood/affect Skin: normal color, warm/dry Progress/Results/Core Measures Results/Orders My Orders Orders - HOA QUINTERO APRN Shoulder, Left, 3 Views (10/08/22 16:35) Oxycodone/Acet 10/325mg Tablet (Percocet (10/08/22 17:15) Rx-Oxycodone/Apap 5-325 Mg (Rx-Percocet (10/08/22 17:30) Medications Given in ED Current Medications Medications Dose Ordered Sig/Deanne Route Start Time Stop Time Status Last Admin Dose Admin Oxycodone/ Acetaminophen 1 ea Q4H PRN PO 10/08/22 17:30 10/08/22 17:47 DC 10/08/22 17:37 1 EA Oxycodone/ Acetaminophen 1 tab ONCE ONCE PO 10/08/22 17:15 10/08/22 17:16 DC 10/08/22 17:37 1 TAB Vital Signs/I&O 10/08/22 10/08/22 16:20 17:45 Temp 36.5 Pulse 94 88 Resp 18 18 B/P (MAP) 130/83 (99) 132/90 Pulse Ox 100 O2 Delivery Room Air Blood Pressure Mean: 99 Progress Progress Note #1: Time: 16:38 Progress Note Patient seen and evaluated, resting in recliner, mild distress. Based on exam and symptoms, concern for left shoulder dislocation or fracture. X-ray of left shoulder ordered. Progress Note #2: Time: 17:10 Progress Note X-ray reviewed. Shows potentially acute, impacted fracture of the humeral head. States that this injury could also be chronic. Radiologist recommends CT if it would change patient management. Considered CT of the shoulder, but at this time it does not change patient management. Will place patient in a sling, and give pain medicine. Will discharge with prescription for pain medicine and follow-up with orthopedics. Discharge instructions and return precautions provided. Diagnostic Imaging Diagonstic Imaging: Xray Plain Films/CT/US/NM/MRI: other (Shoulder) Comments [facility], [place] NAME: LIAM HERNANDEZ [facility] REC#: [id number] PT STATUS: REG ER : 1980 PHYSICIAN: HOA QUINTERO APRN ADMIT DATE: 10/08/22/ER Signed Date of Exam:10/08/22 SHOULDER, LEFT, 3 VIEWS Shoulder, left, 3 views INDICATION: Left shoulder pain and decreased range of motion. COMPARISON: None available. TECHNIQUE: 3 views of the left shoulder. FINDINGS: There is an impacted fracture involving the anterior aspect of the humeral head articular surface. No avulsion fracture of the greater tuberosity. No surgical neck fracture. AC joint is normal alignment. Old healed fracture of the posterior left 6th rib. IMPRESSION: Age-indeterminate, but potentially acute, impacted fracture of the humeral head. The patient does have an old healed posterior rib fracture on the left, and this injury in the shoulder could be chronic. If it will alter patient management, then consider CT of the left shoulder without contrast for further assessment. Dictated by: Dictated on workstation # [id number] Dict: 10/08/221654 Trans: 10/08/221701 [facility] [id number] Interpreted by: SUMMER BLANCO MD Electronically signed by: SUMMER BLANCO MD 10/08/221701 Departure Impression Primary Impression: Fracture of humeral head Disposition: 01 HOME, SELF-CARE Condition: Stable Departure-Patient Inst. Decision time for Depature: 17:18 Referrals: JORDEN ARIAS (PCP) Primary Care Physician TIARA DE LA PAZ MD Patient Instructions: Shoulder Fracture Add. Discharge Instructions: Wear sling to support your arm. You may use ice on your shoulder up to 20 minutes at a time several times a day to help with pain and inflammation. Elevate and rest your shoulder as well. You may take Percocet as needed for pain, it can cause constipation, if needed you may add an [id number] stool softener like docusate sodium. Percocet can also cause you to be sleepy, do not drive or operate machinery while taking. Follow-up with orthopedics. Call them tomorrow to schedule appointment. Return for uncontrollable pain, numbness or tingling in your hand, or any other new, concerning, or worsening symptoms. All discharge instructions reviewed with patient and/or family. Voiced understanding. Scripts Oxycodone HCl/Acetaminophen (Percocet 5-325 mg Tablet) 5 Mg-325 Mg Tablet 1 TAB PO Q4H PRN for PAIN-MODERATE MDD 6, #20 TAB 0 Refills Prov: HOA QUINTERO APRN 10/08/22 HOA QUINTERO APRN Oct 08, 2022 16:38
--- NOTE | 2022-10-08 17:02 | Diagnostic Imaging Report ---
Shoulder, left, 3 views INDICATION: Left shoulder pain and decreased range of motion. COMPARISON: None available. TECHNIQUE: 3 views of the left shoulder. FINDINGS: There is an impacted fracture involving the anterior aspect of the humeral head articular surface. No avulsion fracture of the greater tuberosity. No surgical neck fracture. AC joint is normal alignment. Old healed fracture of the posterior left 6th rib. IMPRESSION: Age-indeterminate, but potentially acute, impacted fracture of the humeral head. The patient does have an old healed posterior rib fracture on the left, and this injury in the shoulder could be chronic. If it will alter patient management, then consider CT of the left shoulder without contrast for further assessment. Dictated by: Dictated on workstation # [id number]
[2022-10-08] MEDS ORDERED: oxyCODONE/APAP 10/325MG (PERCOCET 10) TABLET PO ONE (17:15)
[2022-10-08] MEDS ORDERED: OXYC-199 PO (17:24)
[2022-10-08] MEDS ORDERED: RX-OXYCODONE/APAP 5-325 MG #4 TAB PK PO PRN (17:30)
[2022-10-08 17:45] VITALS: BP 132/90
== END 2022-10-08 17:47 | disposition home or self-care (01) ==
LOC: EDUNIT# 16:06 → ER 16:09
DX: S42.202A Unspecified fracture of upper end of left humerus, initial encounter for closed fracture (principal); I10 Essential (primary) hypertension; F17.210 Nicotine dependence, cigarettes, uncomplicated; V80.010A Animal-rider injured by fall from or being thrown from horse in noncollision accident, initial encounter; Y93.52 Activity, horseback riding
CPT/HCPCS: 73030